=== PATIENT | female | born 1975 | race Caucasian/White ===

== ENCOUNTER 2017-05-21 05:35 | Day surgery (SDC) | payer BC ==
[~2017-05-21] VITALS: Ht 170.2 cm; Wt 66.0 kg
[~2017-05-21 05:35] MED LIST: ADDERALL20 MG PO; FIORICET 50-301 EAC1 PO; IMITREX100 MG PO; KLONOPIN0.5 M1 PO; LEXAPRO10 MG PO; Motrin PO; NATALCARE RX1 TABLET PO; Percocet 5/325,Endoc PO; TOPROL XL100 MG PO; VALTREX1000 MG PO; ZOCOR40 MG PO; ZOFRAN4 MG PO
[2017-05-21 06:00] VITALS: BP 103/60
[2017-05-21] MEDS ORDERED: IBUPROFEN800 MG PO (07:24)
[2017-05-21] MEDS ORDERED: OXYCODONE-APAP1 EACH PO (07:24)
[2017-05-21 10:59] VITALS: BP 99/50
[2017-05-21 12:00] VITALS: BP 91/50
[2017-05-21 13:30] VITALS: BP 97/55
[2017-05-21 17:35] VITALS: BP 111/58
== END 2017-05-21 18:00 | disposition home or self-care (01) ==
LOC: SDC 05:35
DX: N92.0 Excessive and frequent menstruation with regular cycle (principal); N80.0 Endometriosis of uterus; N94.6 Dysmenorrhea, unspecified; D27.0 Benign neoplasm of right ovary; F90.0 Attention-deficit hyperactivity disorder, predominantly inattentive type; E78.5 Hyperlipidemia, unspecified; J30.9 Allergic rhinitis, unspecified; F41.1 Generalized anxiety disorder
CPT/HCPCS: 88307; J0131; J0690; J1100; J1170; J1885; J2250; J2405; J2710; J3010

== ENCOUNTER 2017-11-02 11:53 | Day surgery (SDC) | payer BC ==
[~2017-11-02] VITALS: Ht 170.2 cm; Wt 67.1 kg
[~2017-11-02 11:53] MED LIST changes: +AMBIEN5 MG PO; +DULCOLAX5 MG PO; +IBUPROFEN800 MG PO; +MACROBID100 MG PO; +MOTRIN800 MG PO; +OXYCODONE-APAP1 EACH PO; +WOMEN'S DAILY1 EAC4 PO
[2017-11-02 12:32] VITALS: BP 103/58
[2017-11-02] MEDS ORDERED: IBUPROFEN800 MG PO (13:06)
[2017-11-02] MEDS ORDERED: ENDOCET 5-3251 EACH PO (13:06)
[2017-11-02 16:33] VITALS: BP 115/64
[2017-11-02 17:39] VITALS: BP 110/70
== END 2017-11-02 17:40 | disposition home or self-care (01) ==
LOC: SDC 11:53
DX: N73.6 Female pelvic peritoneal adhesions (postinfective) (principal); R10.2 Pelvic and perineal pain
CPT/HCPCS: 88305; J0131; J1100; J1170; J1885; J2250; J2405; J2710; J2765; J3010; J7643; Q0175